=== PATIENT | male | born 1965 | race Caucasian/White ===

== ENCOUNTER 2024-11-26 01:04 | Day surgery (SDC) | payer OTHER, SELFPAY ==
[2024-11-19 14:11] VITALS: BMI 27.2
--- NOTE | 2024-11-25 13:47 | P.PNAN_ITS ---
Anes - Initial Pre Proc Eval Procedure: Operation Date: 11/26/24 10:30 Proposed Procedures p Colonoscopy - Dalton Talbot MD Date/Time: 11/25/24 13:47 Surgeon: Dalton Talbot MD Pre Op Diagnosis: Change in bowel habit Patient Data Age: 59 Gender: M Height: 1.8 m Weight: 88.5 kg Allergies Allergy/AdvReac Type Severity Reaction Status Date / Time No Known Allergies Allergy Verified 11/26/24 09:05 Home Medications ?Medication ?Instructions ?Recorded ?Confirmed ?Type dicyclomine 10 mg capsule 10 mg PO QID #120 caps 07/23/24 11/19/24 Rx Patient hx anesthesia problems: none Family hx anesthesia problems: none Results Review: All pre-operative results and documents have been reviewed as part of the pre- operative evaluation. [facility] Surgical History Surgical History History of inguinal hernia repair 2018 Family History Family History Father Diabetes mellitus Cancer Sibling Cancer Social History Social History (Updated 10/01/24 @ 08:32 by Rudy Collazo) Social History: 10/01/24 somewhat confident with medical forms Smoking status: Never smoker Alcohol intake: never Substance use: never Do You Feel Safe in your Home?: Yes Lack of Transportation: No Lack of Food: Never True Current Housing: I Have Housing Concerned About Future Housing: No Difficulty Paying Gas/Electric Bills: No Difficulty Paying for Meds: No Currently Unemployed: No Education: High School Diploma/GED Difficulty w/ Childcare or Family Care: No Living arrangements: alone Additional living arrangements comments: Occupation/Education: occupation 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 Informed Consent: The patient's anesthetic plan and its attendant risks and benefits were discussed with the patient/family/POA. Questions were solicited and answers provided to the satisfaction of the patient/family/POA.
--- OUTSIDE RECORDS SUMMARY | 2024-11-26 01:07 | XMS_ITS | Clinical Summary ---
Author Organization [facility] Address [address] [place] [address] Care Team Providers Care Police Communications Operator Name Role Phone Jacky, Miriam Rhoades [facility] Primary Care Provider + Allergies No known active allergies Medications Multiple Vitamins-Mineral s (MULTIVITAMIN ADULT OR) Take 1 tablet by mouth daily. Active VANADYL SULFATE ORIndications:to regulate blood sugar Take 10 mg by mouth 2 (two) times a day. Indications: to regulate blood sugar Active Amino Acids (AMINO ACID OR) Take 1 tablet by mouth daily. Active WHEY PROTEIN CONCENTRATE OR Take 1 Application by mouth daily. Active Zinc Sulfate (ZINC 15 OR) Take 1 tablet by mouth daily. Active predniSONE 20 MG tabletIndication s:Congestion of nasal sinus TAKE 2 TABLETS DAILY (40MG) FOR 5 DAYS 10 tablet 1 Active fluticasone propionate (FLONASE) 50 MCG/ACT nasal sprayIndications :Acute non-recurrent maxillary sinusitis 1 spray by Nasal route 2 (two) times a day. 11.1 mL 2 Active Active Problems No known active problems Immunizations Name Administration Dates Next Due COVID-19 Vaccine (Generic) 05/25/2021(Deferred: Patient Refused) Hepatitis A (Generic) 11/06/2018 Hepatitis A (Havrix 14[address]) 11/06/2018 Influenza (Generic) 05/25/2021(Deferred: Patient Refused) Tdap (Generic) 11/06/2018 Tdap (Historical Only-select from [employer] 11/06/2018 Family History Medical History Relation Comments Hyperlipidemia Brother Cancer Father skin Diabetes Father No Known Problems Mother Relation Status Comments Brother Alive Daughter Alive Father Alive Mother Alive Sister Alive Son Alive Social History Tobacco Use Types Packs/Day Years Used Date Smoking Tobacco: Never Smokeless Tobacco: Never Tobacco Cessation:Counseling Given: No Alcohol Use Standard Drinks/Week Comments Yes 0 (1 standard drink = 0.6 oz pur e alcohol) rare PHQ-2 Answer Date Recorded PHQ-2 Score - If the patient scores above 3, please move on to questions 3-9 0 05/25/2021 Education Answer Date Recorded What is the highest level of school you have completed or the highest degree you have received? High school graduate 11/06/2018 Sex and Gender Information Value Date Recorded Sex Assigned at Not on file Legal Sex Male 8:24 PM CDT Gender Identity Not on file Sexual Orientation Not on file Occupation Industry Job Start Date Job End Date Not on file Not on file Not on file Not on file Last Filed Vital Signs Vital Sign Reading Time Taken Comments Blood Pressure 133/75 08/01/2022 4:32 PM FILM CLE[employer]ER Pulse 76 08/01/2022 4:32 PM [employer]M [employer] Temperature 36.8 C (98.2 F) 08/01/2022 4:32 PM FILM CLE[employer]ER Respiratory Rate 20 08/01/2022 4:32 PM FILM CLE[employer]ER Oxygen Saturation 100% 08/01/2022 4:32 PM FILM CLE[employer]ER Inhaled Oxygen Concentration - - Weight 88.4 kg (194 lb 12.8 oz) 08/01/2022 4:32 PM FILM CLE[employer]ER Height 180.3 cm (5' 11 ) 08/01/2022 4:32 PM FILM 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 Body Mass Index 27.17 08/01/2022 4:32 PM FILM CLEANER Plan of Treatment Health Maintenance Due Date Last Done Comments Colorectal Cancer Screening Colonoscopy (10 Years) 1967 Hepatitis C 11/02/1985 Hepatitis B Vaccines (1 of 3 - 19+ 3-dose series) 11/02/1986 Zoster Vaccines (1 of 2) 11/02/2017 Annual Physical 05/25/2022 05/25/2021 COVID-19 Vaccine ( - 2023-2 5 season) 2024 Influenza Adult (#1) 2024 DTaP, Tdap and Td Vaccines ( 3 - Td or Tdap) 11/06/2028 11/06/2018, 11/06/2018 Meningococcal B Vaccine Aged Out No l onger eligible based on patient's age to complete this topic Meningococcal Vaccine Aged Out No garrick noel eligible based on patient's age to complete this topic Pneumococcal Vaccine: Pediatrics (0 to 5 Years) and At-Risk Patients (6 to 64 Years) Aged Out No longer eligible b ased on patient's age to complete this topic RSV Immunizations Under 20 Months Aged Out No longer eligible b ased on patient's age to complete this topic Medical Devices Implanted Type Area [employer] Instructor Device Identifier Shelf Expiration Date Model / Serial / Lot Mesh Bard Marlex 3 X 6 [id number] - [id number] Implanted:Qty : 1 on 10/01/2017 by Pedrito Cotter MD at [facility] Right: [employer] 05/22/2022 [id number] / / [id number] Insurance [employer] Care Teams Police Communications Operator Relationship Specialty Start Date End Date Miriam Rico, DIRECTOR FINANCIAL SERVICES- [id number], [address] [place] [address] PCP - General Nurse Practitioner Family 06/13/23
[2024-11-26 09:06] VITALS: BP 139/77; PULSE 75; RESP 18; TEMP 36.1; O2SAT 100
[2024-11-26] MEDS: LACTATED RINGERS 1,000 ML 150 ML IV CONT (09:15)
--- NOTE | 2024-11-26 09:46 | PM.IMHP ---
H&P: HPI History of Present Illness Date/Time: 11/26/24 09:46 Chief Complaint: Screening colonoscopy Narrative: This is the patient's first colonoscopy. There are no GI symptoms and there is no family history of colorectal cancer. Review of Systems Review of Systems: All systems reviewed & are unremarkable except as noted in HPI and below [facility] Surgical History Surgical History History of inguinal hernia repair 2018 Family History Family History Father Diabetes mellitus Cancer Sibling Cancer Social History Social History (Updated 10/01/24 @ 08:32 by Rudy Collazo) Social History: 10/01/24 somewhat confident with medical forms Smoking status: Never smoker Alcohol intake: never Substance use: never Do You Feel Safe in your Home?: Yes Lack of Transportation: No Lack of Food: Never True Current Housing: I Have Housing Concerned About Future Housing: No Difficulty Paying Gas/Electric Bills: No Difficulty Paying for Meds: No Currently Unemployed: No Education: High School Diploma/GED Difficulty w/ Childcare or Family Care: No Living arrangements: alone Additional living arrangements comments: Occupation/Education: occupation 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 [employer] concerns: No Agree to blood products: Yes Meds Home Medications and Allergies Home Medications ?Medication ?Instructions ?Recorded ?Confirmed ?Type dicyclomine 10 mg capsule 10 mg PO QID #120 caps 07/23/24 11/19/24 Rx Allergies Allergy/AdvReac Type Severity Reaction Status Date / Time No Known Allergies Allergy Verified 11/26/24 09:05 Vital Signs Vital Signs - 24 hr 11/26/24 09:06 Temperature 97 F L Pulse Rate 75 Respiratory Rate 18 Blood Pressure 139/77 Pulse Oximetry 100 Oxygen Delivery Room Air Exam Const: General: cooperative and healthy appearing Resp: Effort & Inspection: normal respiratory effort and able to speak in complete sentences Auscultation: clear to auscultation bilaterally Cardio: Rate: regular rate Rhythm: regular rhythm GI: Inspection: normal to inspection GI Palp: No No hepatosplenomegaly present Auscultation: normal bowel sounds Rectal Exam: deferred Skin: General skin exam: normal color Psych: Appearance: grossly normal Mental Status: mental status grossly normal Assessment and Plan Assessment and plan (1) Encounter for screening colonoscopy: Code(s): Z12.11 - Encounter for screening for malignant neoplasm of colon Status: Acute Assessment and Plan: The patient is deemed a good candidate for the procedure. Consent signed. Will proceed.
[2024-11-26 10:04] VITALS: BP 129/77; PULSE 65; RESP 16; O2SAT 97
[2024-11-26 10:14] VITALS: BP 105/72; PULSE 64; RESP 22; O2SAT 100
[2024-11-26 10:24] VITALS: BP 128/74; PULSE 63; RESP 17; O2SAT 100
== END 2024-11-26 10:35 | disposition home or self-care (01) ==
PROVIDERS: PCP Physician Assistant Medical; Referring Provider Nurse Practitioner Family; Visit Provider Internal Medicine Gastroenterology
PROC: 0DJD8ZZ Inspection of Lower Intestinal Tract, Via Natural or Artificial Opening Endoscopic (ICD-10-PCS; CPT 45378; principal; 2024-11-26 10:30)
DX: Z12.11 Encounter for screening for malignant neoplasm of colon (principal); K64.8 Other hemorrhoids; Z98.890 Other specified postprocedural states; Z80.9 Family history of malignant neoplasm, unspecified
CPT/HCPCS: 45378; J2704; J7120